=== PATIENT | female | born 1970 | race Caucasian/White ===

== ENCOUNTER 2021-01-28 15:29 | Emergency (ER) | payer MEDICAID, SELFPAY ==
[2021-01-28 15:29] VITALS: BP 156/120; PULSE 95; RESP 18; TEMP 36.9; O2SAT 96; BMI 46.4
--- NOTE | 2021-01-28 15:50 | RAD_ITS ---
STUDY: X-RAY - LEFT WRIST REASON FOR EXAM: Female, 50 years old. injury TECHNIQUE: 3 view(s) of the wrist were obtained. COMPARISON: None. FINDINGS: An acute comminuted impaction fracture of the distal radial metaphysis is present with extension into the ulnar side of the articular surface. There is also mild lateral displacement of the distal fracture fragment. Normal ulna. Normal radiocarpal articulation. Normal distal radioulnar articulation. Normal carpal bones. Normal carpal articulations. Normal carpometacarpal articulation of the thumb. Normal second through fifth carpometacarpal articulations. Normal visualized metacarpal bones. Mild soft tissue swelling is present. RAD/Wrist min 3 Views IMPRESSION: Acute comminuted impaction fracture of the distal radial metaphysis Electronically Signed: Mac Lopez MD at 17:23 EDT , Service support ,
--- NOTE | 2021-01-28 15:52 | EDS_ITS ---
HPI History of Present Illness Chief Complaint: Upper Extremity Injury Detail of Chief Complaint: All with Informant: patient Narrative Narrative: Patient presents to the emergency department with complaint of a fall. Patient was stepping off of a curb when she fell and injured her left wrist and left ankle. She also landed on her knees but she thinks those are just scraped. She is unsure if she hit her head but no loss of consciousness. She denies neck pain or chest pain or abdominal pain. Tetanus Immunization: <5 years PFSH PFSH Home Medications hydrocodone-acetaminophen 1 tab PO Q4H PRN PRN 2 Days #20 tablet 01/28/21 [Rx Last Taken Unknown] Allergy/AdvReac Type Severity Reaction Status Date / Time Anesthetics - Amide Type - Allergy Other Verified 01/28/21 15:37 Select A Anesthetics - [place] Type- Allergy Other Verified 01/28/21 15:37 Parabens clindamycin Allergy Anaphylaxis Verified 01/28/21 15:37 doxycycline Allergy Rash Verified 01/28/21 15:37 Sulfa (Sulfonamide Allergy Rash Verified 01/28/21 15:37 Antibiotics) Tetracyclines Allergy Rash Verified 01/28/21 15:37 Social History Smoking Status: Never smoker ROS [facility] ED Constitutional Constitutional ED: Reports systems reviewed and no addt'l complaints, except as documented; Denies body ache(s), change in weight or chills Eyes Eyes: Denies acute decrease in peripheral vision, change in vision, double vision or loss of vision ENT ENT ED: Reports none; Denies ear pain, lip swelling, loss taste/smell, neck pain, otalgia or sore throat Cardiovascular Cardiovascular: Reports none; Denies abdominal pain, chest pain with activity, leg edema, lightheadedness, palpitations, rapid heart rate or syncope Respiratory/Chest Respiratory/Chest: Reports none; Denies change in mental status, dry cough, dyspnea, hemoptysis, shortness of breath at rest or shortness of breath with exertion Gastrointestinal Gastrointestinal: Reports none; Denies abdominal pain, change in stool character, diarrhea, hematemesis, hematochezia, melena, rectal bleeding or vomiting Genitourinary Genitourinary ED: Reports none; Denies abdominal discomfort, anuria, dysuria, genital pain or polyuria Musculoskeletal Musculoskeletal: Reports none and other Details: Left wrist and left ankle pain ; Denies arthralgias, back pain, difficulty walking, extremity pain, muscle weakness or myalgias Integumentary Reports none; Denies abscess or rash Neurologic Neurologic: Reports none; Denies abnormal gait, confusion, focal weakness, frequent falls, headache(s), loss of vision, numbness, paresthesias, radicular pain, vertigo or weakness Psychiatric Psychiatric: Reports systems reviewed and no addt'l complaints, except as documented and none; Denies behavioral changes, confusion, difficulty concentrating, hallucinations, suicidal ideation, tactile hallucinations or visual hallucinations Endocrine Endocrinology: Denies none, cold intolerance, excessive sweating, fatigue or heat intolerance Hematologic/Lymphatic Hematologic/Lymphatic: Reports none; Denies anemia, easy bleeding or easy bruising Allergic/Immunologic Allergic/Immunologic ED: Denies as per HPI, none, lip swelling, mouth swelling, throat swelling, tongue swelling or hives EXAM Physical Exam Const Vital Signs: 01/28/21 15:29 Temperature 98.5 F Temperature Source Oral Pulse Rate 95 Respiratory Rate 18 Blood Pressure 156/120 H Blood Pressure Mean 132 Pulse Ox 96 Oxygen Delivery Method Room Air Extremity Extremity Narrative: Evaluation of the left wrist reveals some diffuse soft tissue swelling with diffuse tenderness on palpation. Limited range of motion flexion extension secondary to pain. No open skin noted. She is neurovascular intact distally. No significant pain at the elbow noted. Evaluation of her left ankle does reveal some soft tissue swelling over the lateral malleolus with tenderness to palpation. No pain at the proximal fibular head. No pain at the base of the fifth metatarsal. MDM MDM MDM Narrative Medical decision making narrative: Case was discussed with orthopedic surgeon on-call Dr. Csear Aguilar who requested that I place patient in a splint and have her follow-up with the office tomorrow. Patient is hesitant to allow procedural sedation or any type of anesthesia given that she states she almost during anesthesia years ago. She would like to attempt other avenues of having the fracture site reduced and so we discussed that hematoma block. Patient will be given a prescription for [place] for pain. She was given an air splint for her ankle. She will not be able to do crutches. Radiography Diagnostic Testing: Left ankle obtained interpreted by myself as no acute fractures. X-rays 3 views of left wrist obtained showed a displaced distal radius fracture. Radiology in agreement. Treatment and Re-Evaluation Comments:: Patient had a volar wrist splint fabricated from [facility]. Discharge Plan Triage Chief Complaint: Upper Extremity Injury ED Provider: Raisa Marrero Dx/Rx/DC Orders Clinical Impression: Fracture of left wrist, Left ankle sprain Instructions: ED Fracture, Wrist, General, ED Ankle Sprain (Adult) Prescriptions: New hydrocodone-acetaminophen [hydrocodone-acetaminophen] 1 TABLET tablet 1 tab PO Q4H PRN PRN (Reason: Pain) 2 Days Qty: 20 RF: 0 Referrals: AKOSUA REVELES [Other] Cesar Aguilar DO [STAFF PHYSICIAN] - 1 Day Disposition Disposition: Home, self care
[2021-01-28] MEDS: Morphine 4 MG/ML Syringe IM (15:58)
[2021-01-28] MEDS: Ondansetron 4 MG/2 ML Vial IM (15:58)
--- NOTE | 2021-01-28 16:10 | RAD_ITS ---
STUDY: X-RAY - LEFT ANKLE REASON FOR EXAM: Female, 50 years old. injury TECHNIQUE: 3 view(s) of the ankle. COMPARISON: None. FINDINGS: Mild soft tissue swelling is present over the lateral malleolus. Normal medial and lateral malleoli. Normal tibiotalar articulation and ankle mortise. Normal visualized talus and calcaneus. The visualized subtalar, talonavicular, calcaneocuboid and tarsal articulations are normal. RAD/Ankle min 3 Views IMPRESSION: Mild soft tissue swelling over the lateral malleolus Electronically Signed: Mac Lopez MD at 17:25 EDT , Service support ,
--- NOTE | 2021-01-28 16:40 | NURSING ---
DR GROVER PAGEEvie
--- NOTE | 2021-01-28 17:07 | NURSING ---
LEFT MESSAGE ON DR BARKLEY PHONE
--- NOTE | 2021-01-28 17:21 | NURSING ---
DR GROVER PAGEEvie
[2021-01-28 19:01] VITALS: BP 172/82; PULSE 88; RESP 20; O2SAT 98
== END 2021-01-28 19:03 | disposition home or self-care (01) ==
PROVIDERS: Emergency Provider Emergency Medicine
DX: S52.592A Other fractures of lower end of left radius, initial encounter for closed fracture (principal); S93.402A Sprain of unspecified ligament of left ankle, initial encounter; W10.1XXA Fall (on)(from) sidewalk curb, initial encounter; Y93.9 Activity, unspecified; Y92.9 Unspecified place or not applicable; Y99.9 Unspecified external cause status
CPT/HCPCS: 29125; 73110; 73610; 96372; 99285; J2405